=== PATIENT | female | born 1970 | race Caucasian/White ===

== ENCOUNTER 2018-08-07 02:10 | Emergency (ER) | payer SELFPAY ==
[2018-08-07 02:57] LABS: #Basophils 0.1 thou/uL (0.0-0.2); #Eosinphils 0.3 thou/uL (0.0-0.7); #Lymphocytes 2.2 thou/uL (1.20-3.40); #Monocytes 1.1 thou/uL (0.11-0.59); #Neutrophils 6.1 thou/uL (1.40-6.50); %Basophils 0.9 % (0.0-1.0); %Eosinophils 2.6 % (0.0-10.0); %Lymphocytes 22.6 % (21.0-51.0); %Monocytes 11.6 % (0.0-10.0); %Neutrophils 62.3 % (42.0-75.0); Hemoglobin 14.1 g/dL (12.0-16.0); Mean Corpuscular HGB CONC 34.5 g/dL (32.0-36.0); Mean Corpuscular Hemoglobin 30.6 pg (27.0-31.0); Mean Corpuscular Volume 88.7 fL (78.0-98.0); Mean Platelet Volume 7.8 fL (7.4-10.4); Platelet Count 296 thou/uL (130-400); RBC Distribution Width 13.3 % (11.5-14.5); Red Blood Cell (RBC) Count 4.61 mill/uL (4.20-5.40); White Blood Cell (WBC) Count 9.8 thou/uL (4.8-10.8)
[2018-08-07 03:18] LABS: ALT (SGPT) 22 U/L (8-55); AST (SGOT) 36 U/L (5-34); Albumin 4.6 g/dL (3.5-5.0); Alkaline Phosphatase 97 U/L (40-150); Anion Gap 19 mmol/L (10-20); BUN (Urea Nitrogen) 30 mg/dL (7.0-18.7); Bilirubin, Total 1.6 mg/dL (0.2-1.2); CK (CPK) 940 U/L (29-168); Calc. Creatinine Clearance 0 mL/min (70-130); Calcium 9.4 mg/dL (7.8-10.44); Carbon Dioxide 20 mmol/L (22-29); Chloride 106 mmol/L (98-107); Estimated GFR-MDRD 43; Globulin 2.7 g/dL (2.4-3.5); Glucose 107 mg/dL (70-105); Potassium 3.7 mmol/L (3.5-5.1); Protein, Total 7.3 g/dL (6.0-8.3); Sodium 141 mmol/L (136-145)
[2018-08-07 03:19] LABS: Acetaminophen Less than 6.0 mcg/mL (10.0-30.0); Alcohol Less than 10 mg/dL (Less than 10); Salicylate Less than 8.0 mg/dL (15.0-30.0)
[2018-08-07] MEDS ORDERED: Ibuprofen 800 MG TAB ONE (03:30)
[2018-08-07] MEDS ORDERED: Ibuprofen 200 MG TAB ONE (03:32)
--- NOTE | 2018-08-07 08:27 | RAD ---
PORTABLE CHEST 1 VIEW: Date: 08/07/18 Time: 0232 hours HISTORY: Chest pain. FINDINGS: The heart size is normal. The lungs are expanded without focal areas of consolidation, pneumothorax, or pleural effusions. IMPRESSION: No radiographic evidence of acute cardiopulmonary process. POS: [facility]
--- NOTE | 2018-08-07 09:29 | CT ---
PRELIMINARY REPORT/[facility]/EMERGENTY AFTER-HOURS PROCEDURE CT Neck Without Contrast EXAM DATE/TIME: 08/07/2018 6:04 AM CLINICAL HISTORY: 47 years old, female; Signs and symptoms; Other: Emphasyma noted in cta chest exam; Patient HX: Er8, cta chest preformed, doris dr noted sub-q emphysema. Er8, f47 presents ed for chest pain. PT reports o n going past couple of weeks with pain across the chest. PT reports excedrin relieves pain but has to rn up her gi tract. PT reports hot tea helps too. PT reports sitting up exacerbates pain. PT reports constant sweating due to menopause. PT reports sore throat. PT reports HX of smoking. TECHNIQUE: Axial computed tomography images of the neck without contrast. COMPARISON: CTA Angio Chest W WO Con 08/07/2018 4:04:25 AM FINDINGS: Nasopharynx: Unremarkable. Oropharynx: Questionable fullness along the floor of mouth on the right. No defined fluid collection. No significant tonsillar enlargement. Hypopharynx: Unremarkable. Larynx: Unremarkable. Normal epiglottis. Retropharyngeal space: Unremarkable. Submandibular/Parotid glands: Unremarkable. Glands are normal in size. Thyroid: Unremarkable. Lymph nodes: Unremarkable. Trachea: Unremarkable. Lung apices: Normal as visualized. Vasculature: Left external jugular vein catheter. Bones/joints: Normal. No acute fracture. Soft tissues: Bubbles of subcutaneous gas in the right supraclavicular region with a few extending al idalia the posterior triangle and minimal fat stranding. No defined fluid collection or hematoma. IMPRESSION: 1. Bubbles of subcutaneous gas and minimal stranding in the right supraclavicular region. Correlate c linically regarding previous intervention/vascular access, trauma, or possible infection. 2. Questionable fullness along the floor of mouth on the right, possibly positional. Thank you for allowing us to participate in the care of your patient. Dictated and Authenticated by: Norman Constantino MD 08/07/2018 7:09 AM Central Time ([place] & [place]) FINAL REPORT CT NECK WITHOUT CONTRAST: Date: 08/07/18 FINDINGS/IMPRESSION: I agree with the preliminary report given by Doris. POS: [facility]
--- NOTE | 2018-08-07 09:31 | CT ---
PRELIMINARY REPORT/[facility]/EMERGENTY AFTER-HOURS PROCEDURE Addendum created by Mason Kaye MD on 08/07/2018 5:36 AM Central Time ([place]) THIS REPORT CONTAINS FINDINGS THAT MAY BE CRITICAL TO PATIENT CARE. The findings were verbally commun icated via telephone conference with AVIVA WHITE at 5:34 AM FEEDER OPERATOR on 08/07/2018. The findings were acknowledged and understood. Initial Report created on 08/07/2018 5:20 AM Central Time ([place] & [place]) CT Angiography Chest With Contrast EXAM DATE/TIME: 08/07/2018 4:04 AM CLINICAL HISTORY: 47 years old, female; Pain; Chest pain; Radiating; Patient HX: F47 presents ed for chest pain. PT rep orts on going past couple of weeks with pain across the chest. PT reports excedrin relieves pain but has torn up her gi tract. PT reports hot tea helps too. PT reports sitting up exacerbates pain. PT re ports constant sweating due to menopause. PT reports sore throat. PT reports HX of smoking. TECHNIQUE: Axial computed tomographic angiography images of the chest with intravenous contrast using CT angiogr aphy protocol. MIP reconstructed images were created and reviewed. COMPARISON: No relevant prior studies available. FINDINGS: Pulmonary arteries: No evidence of pulmonary embolism. Aorta: No acute findings. No aortic aneurysm or dissection. Lungs: No consolidation. No masses. Mild emphysema. Left lower lobe calcified granuloma. Few punctate peripheral nonspecific nodular opacities. Pleural space: No pneumothorax. No pleural effusion. Heart: No cardiomegaly. No pericardial effusion. Lymph nodes: No enlarged lymph nodes. Bones/joints: No acute fracture. Soft tissues: Partially visualized right neck/supraclavicular subcutaneous emphysema. IMPRESSION: No evidence of pulmonary embolism. No acute intrathoracic findings. Partially visualized right neck/s upraclavicular subcutaneous emphysema; recommend further evaluation with CT neck. Thank you for allowing us to participate in the care of your patient. Dictated and Authenticated by: Mason Kaye MD 08/07/2018 5:20 AM Central Time ([place]) FINAL REPORT CT PULMONARY ANGIORAM WITH IV CONTRAST AND 3D POSTPROCESSING: Date: 08/07/18 FINDINGS/IMPRESSION: I agree with the preliminary report given by Doris. POS: [facility]
== END 2018-08-07 07:32 | disposition home or self-care (01) ==
LOC: ERS 02:10
DX: R07.89 Other chest pain (principal); F41.9 Anxiety disorder, unspecified; F31.9 Bipolar disorder, unspecified; F17.210 Nicotine dependence, cigarettes, uncomplicated
CPT/HCPCS: 36415; 70490; 71045; 71275; 80053; 80307; 82550; 84484; 85025; 85379; 93005; 94760; 96360